=== PATIENT | male | born 1945 | race African-American/Black ===

== ENCOUNTER 2020-03-11 00:07 | Observation (INO) | payer MEDICARE, SELFPAY ==
[2020-03-11] VITALS (17 sets, daily range): BP systolic 124–184; BP diastolic 55–114; PULSE 66–115; RESP 16–24; TEMP 36.1–37; O2SAT 84–100; BMI 28.3
--- NOTE | 2020-03-11 | ECHO_ITS ---
Patient Info Name: Shawn Salmeron Age: 74 years : 1945 Gender: Male Ht: 75 in Wt: 275 lbs BSA: 2.61 m2 HR: 72 bpm BP: 174 / 108 mmHg Technical Quality: Good Exam Date: 03/11/2020 9:06 AM Exam Location: [facility] Pulmonary Exam Room: 349 Patient Status: Inpatient Admit Date: 03/11/2020 Staff Ordering Physician: Bo Mancini MD [place] Stocker: Beata Wilhelm RDCS Attending Provider: Birgit Eli PA-C Referring Physician: Live MIRANDA; Exam Type: CA echo doppler w bubble study Study Info Indications - acute encephalopathy Complete two-dimensional, color flow and Doppler transthoracic echocardiogram is performed with agitated saline. Contrast/Agitated Saline Contrast/Ag. Saline: Agitated Saline Amount: 20.00 ml Administered By: Dago Baird RN Existing IV Access: Yes IV Access Condition: patent with no signs of infiltration Summary 1. Left ventricular systolic function is normal, estimated at 55-60%. 2. The left ventricular diastolic function is grade I diastolic dysfunction. 3. There is mild tricuspid valve regurgitation. 4. No pulmonary hypertension, estimated pulmonary arterial systolic pressure is 28 mmHg. Left Ventricle Left ventricular chamber dimension is normal. Left ventricular systolic function is normal, estimated at 55-60%. There is no increased left ventricular wall thickness. Left ventricular septal wall motion is normal. The left ventricular diastolic function is grade I diastolic dysfunction. Right Ventricle Right ventricular chamber dimension is normal. Right ventricular systolic function is normal. Left Atria Left atrial chamber dimension is normal. Right Atria Right atrial chamber dimension is normal. Atrial Septum Intact interatrial septum visualized by agitated saline imaging. Aortic Valve The aortic valve is trileaflet. There is no aortic valve sclerosis. There is no aortic valve stenosis. There is no aortic valve regurgitation. Pulmonic Valve The pulmonic valve is normal. There is no pulmonic valve stenosis. There is no pulmonic regurgitation. Mitral Valve The mitral valve has normal leaflets. There is no mitral valve stenosis. There is no mitral valve regurgitation. Tricuspid Valve The tricuspid valve leaflets are normal. There is no significant tricuspid valve stenosis. There is mild tricuspid valve regurgitation. No pulmonary hypertension, estimated pulmonary arterial systolic pressure is 28 mmHg. Pericardium/Pleural The pericardium appears normal. There is no pericardial effusion. Inferior Vena Cava Normal inferior vena cava with >50% collapse upon inspiration consistent with normal right atrial pressure, 5 mmHg. Aorta The aortic root size at the sinus of Valsalva is normal. The prox ascending aorta size is normal. Left Ventricular Outflow Tract Name Value Normal LVOT 2D LVOT Diameter 2.1 cm LVOT Doppler LVOT Peak Gradient 4 mmHg LVOT Mean Gradient 3 mmHg LVOT VTI
--- NOTE | ~2020-03-11 | US_ITS ---
EXAMINATION: US carotid duplex BI DATE: 03/11/2020 13:47 INDICATION: Acute encephalopathy TECHNIQUE: Grayscale, color Doppler, and pulsed Doppler images of the cervical carotid arteries were obtained. The degree of vessel stenosis is placed in one of the following categories: normal, <50%, 5 0-69%, >=70% but less than near-occlusion, near-occlusion, or total occlusion. Note that percent sten osis relative to normal distal artery lumen diameter is indirectly measured from velocity measurement s as described by Jacoby, et al. Radiology 2003; 229:340-346. Notes: Normal: Peak systolic velocity <125 centimeters/sec and no plaque <50%. Peak systolic velocity <125 ( EDV <40; ICA/CCA PSV ratio <2.0; used these factors only a tandem lesions or low cardiac output or co ntralateral disease) 50-69 %: PSV 125-230 (EDV 40-100; ratio 2-4) >= 70% but less than near occlusion: PSV greater than 230 (EDV > 100; ratio> 4.0) Near Occlusion: PSV that is variable; markedly narrowed lumen Occlusion: Absent flow on color/spectral Doppler and no lumen on levy scale. COMPARISON: No prior studies for comparison. . FINDINGS: RIGHT: The right common carotid artery (CCA) peak systolic velocity (PSV) is 74 cm/s. The right internal car otid artery (ICA) PSV is 50 cm/s. The right ICA end-diastolic velocity (EDV) is 16 cm/s. The right IC A/CCA PSV ratio is 0.7. The external carotid artery (ECA) PSV is 51 cm/s. There is antegrade flow in the right vertebral artery. LEFT: The left CCA PSV is 64 cm/s. The left ICA PSV is 42 cm/s. The left ICA EDV is 14 cm/s. The left ICA/C CA PSV ratio is 0.7. The ECA PSV is 41 cm/s. There is antegrade flow in the left vertebral artery. IMPRESSION: 1. Less than 50% stenosis in the right internal carotid artery by sonographic criteria. 2. Less than 50% stenosis in the left internal carotid artery by sonographic criteria. Reviewed, dictated and finalized at location A. ERCIAL FRONT LOAD OPERATOR IMPRESSION: 1. Less than 50% stenosis in the right internal carotid artery by sonographic c phong. 2. Less than 50% stenosis in the left internal carotid artery by sonographic yue heller.
--- NOTE | ~2020-03-11 | CT_ITS ---
EXAMINATION: CTA brain DATE: 03/11/2020 07:25 CHOIR MEMBER INDICATION: Facial droop. Altered level consciousness. TECHNIQUE: Computed tomographic angiography (CTA) of the head was performed without and with 100 mL O mnipaque-350 intravenous contrast. The dose-length product was 683.00 mGy-cm. Volume-rendered and max imum intensity projection 3D reconstructions of the intracranial arteries were created by the technmario hogue on a separate workstation. Automated exposure control and iterative reconstruction technique we re employed. COMPARISON: CT dated 03/11/2020. FINDINGS: There is diminutive left vertebral artery which probably terminates in the posterior inferi or cerebellar artery dominant right vertebral artery. There is intracranial atherosclerosis. The post erior, middle and anterior cerebral arteries are symmetric without central occlusion or aneurysm. IMPRESSION: 1. No evidence for central intracranial occlusion, significant stenosis or aneurysm. Reviewed, dictated and finalized at location A. R MEMBER IMPRESSION: 1. No evidence for central intracranial occlusion, significant stenosis or aneu rysm.
--- NOTE | ~2020-03-11 | CT_ITS ---
EXAMINATION: CT brain wo con DATE: 03/11/2020 00:19 INDICATION: Facial droop. Altered level of consciousness. TECHNIQUE: Computed tomography (CT) of the head was performed without intravenous contrast. The dose- length product was 605.33 mGy-cm. Automated exposure control and iterative reconstruction technique w ere employed. COMPARISON: None FINDINGS: Generalized atrophy. No ventriculomegaly or midline shift. Basilar cisterns are patent. The re are scattered moderate periventricular and subcortical white matter changes, most likely related t o small vessel ischemic disease (microangiopathy). Study limited by motion artifact. No acute intracr anial hemorrhage, infarction or mass. Chronic right lacunar infarction. Paranasal sinuses and mastoid s are pneumatized. IMPRESSION: 1. No acute intracranial abnormality. 2: Chronic age-related findings. Reviewed, dictated and finalized at location A. SPRING ASSEMBLER
--- NOTE | ~2020-03-11 | XR_ITS ---
XR chest 1V portable 03/11/2020 01:33 Indication: Transient alteration of awareness. Procedure: AP portable chest Comparison: No prior studies for comparison. Findings: Bilateral perihilar interstitial infiltrates. Peribronchial thickening. Heart size normal. No significant effusion or pneumothorax. Impression: 1: Bilateral perihilar interstitial infiltrates may represent interstitial edema or atypical pneumoni a. Reviewed, dictated and finalized at location A. ING MACHINE OPERATOR SINGLE NEEDLE Impression: 1: Bilateral perihilar interstitial infiltrates may represent interstitial paul a or atypical pneumonia.
[2020-03-11] MEDS: LORazepam INJ (*CRX) 2 MG/ML VIAL IV PUSH (00:20)
--- NOTE | 2020-03-11 00:27 | ED.AMS ---
HPI - Altered Mental Status General Chief Complaint: Suspected CVA Stated Complaint: altered loc Time Seen by Provider: 03/11/20 00:16 Source: EMS Mode of arrival: EMS Limitations: altered mental status History of Present Illness HPI narrative: Patient is a 74-year-old male brought in by EMS due to decreased responsiveness at home. According to the she was in the bathroom and when she came back patient was flailing his arms around and yelling . Patient does have a history of cognitive impairment, seen his doctor yesterday, and one of his diagnosis on his visit summary was cognitive impairment. MD complaint: altered mental status and decreased responsiveness Review of Systems Review of Systems: ROS unobtainable: Yes unobtainable due to mental status Exam Const: General: no acute distress (Moderate distress) Limitations: physical limitations and other limitations (Altered mental status, nonverbal) HENMT: Head: normal to inspection, normocephalic and atraumatic Ears: hearing grossly normal bilaterally, TM normal on the right and TM normal on the left General nose exam: Normal external nose present, Normal nares present and No nasal discharge present Face and sinus: normal facial exam Mouth: Yes Normal oral and palatal mucosa present and Yes lip normal Eyes: General: appearance normal, both eyes and all related structures Pupils: Equal, round and reactive pupils present EOM: EOMs intact bilaterally Neck: Neck: normal visual inspection, full ROM, no lymphadenopathy and no meningeal signs Chest: Chest palpation & inspection: normal inspection of the chest Resp: Effort & Inspection: normal respiratory effort, able to speak in complete sentences, no respiratory distress and not tachypneic Auscultation: clear to auscultation bilaterally, no crackles, no rales, no rhonchi and no wheezes Cardio: Rate: regular rate Rhythm: regular rhythm GI: Inspection: normal to inspection GI Palp: No abdominal tenderness, Yes Soft to palpation, No Guarding due to palpation present (GI) and No Rigid due to palpation Auscultation: normal bowel sounds : General: Yes no CVA tenderness Back/Spine/Pelvis: Back: no CVA tenderness Skin: General skin exam: normal color, no rashes or lesions noted, elasticity normal and turgor normal Neuro: General: moves all extremities and No confusion Other: Patient moving all 4 extremities trying to get out of the CT table, requiring 3 nurses to restrain the patient, both upper extremities and lower extremities 5 out of 5 strength Patient is nonverbal Patient is unable to follow any commands Extrem: General: normal to inspection, full ROM and capillary refill normal Psych: Appearance: grossly normal and well kempt Course Course Emergency Course: Patient not talking but nonsensical. at bedside. states that patient is usually alert and oriented but not usually to time. 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 Patient condition unchanged. Patient will be admitted Vital Signs Vital signs: Vital Signs Temperature 37.0 C 03/11/20 00:30 Pulse Rate 115 H 03/11/20 00:30 Respiratory Rate 24 H 03/11/20 00:30 Blood Pressure 184/107 H 03/11/20 00:30 Pulse Oximetry 94 03/11/20 00:30 Temperature 37.0 C 03/11/20 00:30 Pulse Rate 115 H 03/11/20 00:50 Respiratory Rate 18 03/11/20 00:50 Blood Pressure 175/114 H 03/11/20 00:50 Pulse Oximetry 95 03/11/20 01:02 MDM - Altered Mental Status MDM Narrative Medical decision making narrative: I have reviewed his labs, ct head and cta of head, no acute intracranial process, no significant occlusion, so ruled out ICH and highly unlikely a CVA. Labs shows an elevated crea but otherwise within normal limits thus ruling out any significant electrolyte abnormality as a cause of his altered mental status. His EKG no ST elevation or Q waves and cardiac enzyme normal ruling out any acute coronary event. Based on 's descript
[2020-03-11 00:37] LABS: Basophils Percent Auto 0.3 % (0.2-1.2); Eosinophils Absolute Auto 0.2 K/mm3 (0-0.3); Eosinophils Percent Auto 1.4 % (0-4.4); Hematocrit 44.7 % (42.0-52.0); Hemoglobin 15.3 g/dL (14.0-18.0); Immature Granulocyte Absolute 0.02 K/mm3 (0.00-0.031); Immature Granulocyte Percent A 0.2 % (0-0.5); Lymphocytes Absolute Auto 5.43 K/mm3 (0.9-3.2); Lymphocytes Percent Auto 42.7 % (18.3-44.2); Mean Corpuscular HGB Conc 34.2 g/dl (32-36); Mean Corpuscular Hemoglobin 31.3 pg (26-34); Mean Corpuscular Volume 91.4 fl (80-100); Mean Platelet Volume 9.9 fl (7.4-10.4); Monocytes Absolute Auto 1.2 K/mm3 (0.1-0.6); Monocytes Percent Auto 9.2 % (2.6-8.5); Neutrophils Absolute Auto 5.9 K/mm3 (1.3-6.7); Neutrophils Percent Auto 46.2 % (45.5-73.1); Platelet Count Result 270 k/mm3 (150-375); Red Blood Count 4.89 M/mm3 (4.6-6.20); Red Cell Distribution Width 12.9 % (11.5-14.5); White Blood Count 12.7 K/mm3 (4.5-10.0)
[2020-03-11 00:51] LABS: Anion Gap 16 mmol/L (8-16); Blood Urea Nitrogen 30 mg/dL (9-20); Calcium 9.3 mg/dL (8.4-10.2); Carbon Dioxide 20 mmol/L (22-30); Chloride 102 mmol/L (98-107); Estimated CRCL calculation 45 ml/min; Estimated Glomerular Filt Rate 45; Glucose 192 mg/dL (75-110); Sodium 138 mmol/L (137-145)
--- NOTE | 2020-03-11 00:56 | ECG_ITS ---
Measurements Intervals [place] Rate: 115 P: 35 TX: 156 QRS: -28 QRSD: 86 T: 66 QT: 304 QTc: 421 Interpretive Statements SINUS TACHYCARDIA INCOMPLETE RIGHT BUNDLE BRANCH BLOCK BORDERLINE ST-T WAVE ABNORMALITY- HIGH LATERAL LEADS BASELINE WANDER- I, III, AVR, AVL, AVF, V4-V6 ABNORMAL ECG Electronically Signed On 03-11-2020 7:11:58 HYDROMETALLURGICAL ENGINEER by Gustabo Carson D.O.
--- NOTE | 2020-03-11 01:00 | PC.NURSE ---
Pt extremely restless and unable to lie still for CT scan. 2mg ativan given per order.
[2020-03-11 01:03] LABS: Troponin I 0.025 ng/mL (0.000-0.034)
[2020-03-11 01:07] LABS: INR 1.1; Partial Thromboplastin Time 28.3 SECONDS (22.3-36.8); Prothrombin Time 14.3 Seconds (11.1-14.7)
[2020-03-11 01:08] LABS: Alveolar/Arterial O2 Gradient 166.9 mmHg; Base Excess ABG -0.9 mEq/l (+/-2.0); Carboxyhemoglobin 1.3 % THb (0-2.0); Fractional Inspired Oxygen 40 %; HCO3 ABG 23.7 mEq/l (22.0-26.0); Methemoglobin ABG 0.2 %THb (0-1.5); Oxygen Content ABG 19.9 %vol (16.0-22.0); Oxygen Saturation ABG 94.7 % (95.0-100.0); Oxyhemoglobin 93.1 % THb (90.0-100.0); PCO2 ABG 39.4 mmHg (35.0-45.0); PO2 FiO2 Ratio Arterial Blood 1.83 %; Reduced Hemoglobin 5.4 %THb (0-5.0); Total Hemoglobin 15.2 g/dL (12.0-18.0); pH ABG 7.398 (7.350-7.450)
[2020-03-11 01:09] LABS: Device NASAL CANNULA; Modified Allen's Test Pass; Site Drawn LEFT RADIAL
[2020-03-11 01:16] LABS: Atypical Lymphocytes Present; Platelet Estimate Adequate (Adequate)
[2020-03-11 01:18] LABS: Add Urine Microscopic? YES; Appearance Urine Clear (Clear); Bilirubin Urine Negative (Negative); Blood Urine Negative (Negative); Color Urine Yellow (Yellow); Glucose Urine UA 2+ mg/dL (Negative); Ketones Urine Negative (Negative); Leukocyte Esterase Ur Negative LEU/UL (Negative); Mucus Urine Rare /lpf; Nitrate Urine Negative (Negative); Protein Urine 1+ mg/dL (Negative); RBC Urine 0-2 /hpf (0-2); Urobilinogen Urine Negative mg/dL (<2.0); WBC Urine 0-3 /hpf
[2020-03-11 01:25] LABS: Amphetamine Screen Urine Negative (Negative); Barbiturate Screen Urine Negative (Negative); Benzodiazepines Screen Urine Negative (Negative); Cannabinoid Screen Urine Negative (Negative); Cocaine Screen Urine Negative (Negative); Methadone Screen Urine Negative (Negative); Opiate Screen Urine Negative (Negative); Phencyclidine Screen Urine Negative (Negative)
--- NOTE | 2020-03-11 01:46 | PC.NURSE ---
Pt becoming less restless and more alert. Was able to tell this RN that his name was Shawn and ask why he was in the hospital. When asked what is birthday was he stated [birth year], [birth year], [birth year], [birth year], [birth year][age][birth year], 48 . Pt repeated those numbers with every subsequent question. notified.
--- NOTE | 2020-03-11 02:17 | PC.NURSE ---
Pt attempting to climb out of bed. Stated he just wanted to get up to the bathroom. Pt assisted with urinal.
--- NOTE | 2020-03-11 02:43 | PM.IMHP ---
H&P: HPI History of Present Illness Date/Time: 03/11/20 02:43 Chief Complaint: Acute altered mental status. Narrative: this is a 74-year-old diabetic male who presented to the hospital [facility] with a complaint of altered mental status. The patient's who is at bedside explains that the patient was asleep for about 1 hour and she was in the bathroom getting ready for bed when suddenly she heard a noise coming from the bedroom. She went into the bedroom and found the patient making strange noises, flailing his arms around, and appear to be having seizure-like activity according to her. She noticed that he was having labored breathing and she could not get him to respond to her. She does not believe that he bit his tongue or lost urine at that time. The patient has no previous history of seizures or previous stroke. On arrival to the emergency room the patient continued to have similar behavior and had to be administered 2 mg of Ativan while undergoing CTA of head. CTA of head did not demonstrate any acute intracranial process. Routine labs were obtained which demonstrated mild acute renal failure which may be chronic. ER provider has consulted Neurology, Dr. Guajardo who has asked that we admit the patient to the hospital as he may have had a seizure and continue close observation. On my encounter with the patient [facility] he is medicated with Ativan who, very somnolent, awakens to physical stimuli, but cannot answer my questions appropriately. No further history is obtainable from the patient. Review of Systems Review of Systems: ROS unobtainable: Yes unobtainable due to mental status PMFSH Past Medical History Medical History Diabetes mellitus Hyperlipidemia Family History Family History Mother Diabetes mellitus Sibling Diabetes mellitus Other Cerebrovascular accident Social History Social History Smoking status: Never smoker Alcohol intake: current Drinks per week: 1 Substance use: never Living arrangements: with family Occupation/Education: retired Gender identity (if verbalized by the patient): Male Spiritual care concerns: No Comments Past surgical history is negative. Meds Home Medications and Allergies Home Medications Medication Instructions Recorded Confirmed Type atorvastatin 20 mg PO HS 03/11/20 03/11/20 History insulin glargine [Lantus Solostar 16 unit SUBCUT QPM 03/11/20 03/11/20 History U-100 Insulin] liraglutide [Victoza 3-Tera] 18 mg SUBCUT DAILY 03/11/20 03/11/20 History pen needle, diabetic [Sure Comfort 03/11/20 03/11/20 History Pen Needle] Allergies Allergy/AdvReac Type Severity Reaction Status Date / Time No Known Allergies Allergy Verified 03/11/20 03:45 Vital Signs Vital Signs - 24 hr 03/11/20 00:30 03/11/20 00:50 03/11/20 01:02 Temperature 37.0 C Pulse Rate 115 H 115 H Respiratory Rate 24 H 18 Blood Pressure 184/107 H 175/114 H Pulse Oximetry 94 84 L 95 03/11/20 01:50 Temperature Pulse Rate Respiratory Rate Blood Pressure Pulse Oximetry 97 Exam Const: General: other (somnolent but arousable) Nutritional Appearance: obese Orientation/consciousness: Other orientation findings (medicated and somnolent) HENMT: Head: normal to inspection General nose exam: Normal external nose present Face and sinus: normal facial exam Mouth: Yes Normal oral and palatal mucosa present and Yes oropharynx normal Eyes: Pupils: Equal, round and reactive pupils present Neck: Neck: supple and no JVD Thyroid: thyroid normal Lymphatic: lymphadenopathy not noted Resp: Effort & Inspection: normal respiratory effort Auscultation: clear to auscultation bilaterally Cardio: Rate: regular rate Rhythm: regular rhythm Heart sounds: no murmurs GI: Inspection: normal to inspect
[2020-03-11] MEDS: ASPIRIN 300 MG SUPPOSITORY RECTAL (02:51)
--- NOTE | 2020-03-11 03:15 | ADMGEN ---
This patient, Shawn Salmeron, was admitted to Medical Room 349-01. Patient/family oriented to hospital policies and general routines including ID bracelet, bed and alarms, visiting hours, pain management, procedures, bathroom and other care routines, personal items, smoking policy, room service/diet, and visiting hours. Information on how to activate the Rapid Response Team has been discussed. Patient/Family are encouraged to report perceived risks to care and to ask questions if they do not understand what they are told or what they should do.
[2020-03-11] MEDS: LACTATED RINGERS 1,000 ML 100 ML IV CONT ×3 (03:27→23:25)
[2020-03-11 03:37] LABS: Ammonia < 9 umol/L (9-30)
[2020-03-11 03:51] LABS: Base Excess ABG 0.2 mEq/l (+/-2.0); Fractional Inspired Oxygen 32 %; HCO3 ABG 25.6 mEq/l (22.0-26.0); Oxygen Content ABG 20.4 %vol (16.0-22.0); Oxygen Saturation ABG 96.4 % (95.0-100.0); Oxyhemoglobin 95.4 % THb (90.0-100.0); PCO2 ABG 44.1 mmHg (35.0-45.0); PO2 ABG 86.6 mmHg (80.0-100.0); PO2 FiO2 Ratio Arterial Blood 2.71 %; Total Hemoglobin 15.2 g/dL (12.0-18.0); pH ABG 7.381 (7.350-7.450)
[2020-03-11 03:52] LABS: Device NASAL CANNULA; Modified Allen's Test Pass; Site Drawn LEFT RADIAL
[2020-03-11 04:41] LABS: Folic Acid > 20.0 ng/mL (2.76->20)
[2020-03-11 05:56] LABS: Total Triiodothyronine (T3) 1.31 NG/ML (0.97-1.69)
[2020-03-11 06:06] LABS: Basophils Percent Auto 0.2 % (0.2-1.2); Eosinophils Percent Auto 0.3 % (0-4.4); Hematocrit 41.2 % (42.0-52.0); Hemoglobin 14.4 g/dL (14.0-18.0); Immature Granulocyte Absolute 0.03 K/mm3 (0.00-0.031); Immature Granulocyte Percent A 0.3 % (0-0.5); Lymphocytes Absolute Auto 2.54 K/mm3 (0.9-3.2); Lymphocytes Percent Auto 27.3 % (18.3-44.2); Mean Corpuscular Hemoglobin 31.9 pg (26-34); Mean Corpuscular Volume 91.2 fl (80-100); Mean Platelet Volume 9.8 fl (7.4-10.4); Monocytes Absolute Auto 0.6 K/mm3 (0.1-0.6); Monocytes Percent Auto 6.9 % (2.6-8.5); Neutrophils Absolute Auto 6.1 K/mm3 (1.3-6.7); Platelet Count Result 228 k/mm3 (150-375); Red Blood Count 4.52 M/mm3 (4.6-6.20); Red Cell Distribution Width 12.8 % (11.5-14.5); White Blood Count 9.3 K/mm3 (4.5-10.0)
[2020-03-11 06:26] LABS: Anion Gap 6 mmol/L (8-16); Blood Urea Nitrogen 28 mg/dL (9-20); Calcium 8.9 mg/dL (8.4-10.2); Carbon Dioxide 27 mmol/L (22-30); Chloride 104 mmol/L (98-107); Estimated CRCL calculation 40 ml/min; Estimated Glomerular Filt Rate 48; Glucose 199 mg/dL (75-110); Magnesium 1.9 mg/dL (1.6-2.3); Potassium 4.1 mmol/L (3.4-5.0); Sodium 137 mmol/L (137-145)
[2020-03-11 06:34] LABS: Troponin I 0.056 ng/mL (0.000-0.034)
[2020-03-11 06:51] LABS: Glucose Point of Care 183 (65-105)
[2020-03-11 10:17] LABS: Troponin I 0.063 ng/mL (0.000-0.034)
--- NOTE | 2020-03-11 10:33 | ECG_ITS ---
Measurements Intervals [place] Rate: 68 P: 29 DC: 153 QRS: -19 QRSD: 98 T: 86 QT: 388 QTc: 414 Interpretive Statements SINUS RHYTHM VENTRICULAR PREMATURE COMPLEX NONSPECIFIC T-WAVE ABNORMALITY- INF/HIGH LAT LEADS BASELINE ARTIFACT- I, II, III, V4-V6 BORDERLINE ECG Electronically Signed On 03-11-2020 11:14:53 REVENUE ENFORCEMENT COLLECTION AGENT by Gustabo Carson D.O.
[2020-03-11 11:39] LABS: Creatine Kinase 426 U/L (55-170)
[2020-03-11 11:57] LABS: Glucose Point of Care 138 (65-105)
--- NOTE | 2020-03-11 13:51 | PM.IMPN ---
Progress Note: A&P Assessment and Plan (1) Seizure: Code(s): R56.9 - Unspecified convulsions Status: Acute Assessment and Plan: presented with concerns for seizure as patient's found him down on the ground having convulsions. He did not bite his tongue or lose urine. No obvious injuries noted. It. He again had a similar episode in the emergency department requiring 2 mg Ativan. He reports he cannot recall the event And is now confused, which may be postictal state. he has not been hypoglycemic since arrival, however did note poor appetite so he could have been hypoglycemic at the time. He has no history of seizure activity. He does not drink alcohol. Neurology consultation appreciated. Seizure precautions in place Ativan IV p.r.n. for seizure activity (2) Acute encephalopathy: Code(s): G93.40 - Encephalopathy, unspecified Status: Acute Assessment and Plan: patient A&O x4, however is exhibiting confusion in conversation. May be postictal state. Head CT negative for acute findings. CT brain showed no central occlusion, stenosis, or aneurysm. UA not suggestive of infection. Electrolytes are stable. ammonia , B12, and folate within normal limits. urine drug screen negative. May be related to dehydration. Appreciate neurology consultation as above monitor mental status closely echocardiogram and carotid Dopplers pending (3) Acute renal failure: Qualifiers: Acute renal failure type: unspecified Qualified Code(s): N17.9 - Acute kidney failure, unspecified Code(s): N17.9 - Acute kidney failure, unspecified Status: Acute Assessment and Plan: no prior labs available to establish baseline. Creatinine 1.8 upon presentation. Suspect prerenal secondary to dehydration. Continue gentle IV fluids monitor renal function closely and avoid nephrotoxic agents. (4) Elevated troponin: Code(s): R77.8 - Other specified abnormalities of plasma proteins Status: Acute Assessment and Plan: Troponin within normal limits upon presentation but was elevated upon repeat. Troponin has been trended today with peak of 0.063 followed by downward trend. I suspect this is secondary to acute seizure. Total CK was mildly elevated as well, supporting seizure as cause for elevated troponin. He has no complaints of chest pain and ACS is not suspected. (5) Leukocytosis: Qualifiers: Leukocytosis type: unspecified Qualified Code(s): D72.829 - Elevated white blood cell count, unspecified Code(s): D72.829 - Elevated white blood cell count, unspecified Status: Acute Assessment and Plan: Resolved. Mildly elevated on presentation and is now normal. Suspect this was reactive secondary to seizure. (6) Diabetes mellitus: Qualifiers: Diabetes mellitus type: type 2 Diabetes mellitus intermediate project manager insulin use: with intermediate project manager use Diabetes mellitus complication status: without complication Qualified Code(s): E11.9 - Type 2 diabetes mellitus without complications; Z79.4 - long term care administrator (current) use of insulin Code(s): E11.9 - Type 2 diabetes mellitus without complications Status: Chronic Assessment and Plan: blood sugars reviewed today and are well controlled. Continue Accuchecks, SSI Coverage, hypoglycemic protocol. Check A1c Subjective Date/time seen: 03/11/20 13:51 Interval history: Date of service: 03/11/2020 Shawn Salmeron is a 74-year-old male with history of diabetes mellitus and hyperlipidemia who is seen in follow-up for suspected seizure. Today he is feeling very sleepy. He answers all my questions but closes his eyes promptly and is not able to elaborate on any of his symptoms. He is A&O x4 but he does appear confused in conversation. he is not able to tell me why he is in the hospital and states that he does not really remember anything leading up
[2020-03-11 13:54] LABS: Troponin I 0.057 ng/mL (0.000-0.034)
--- NOTE | 2020-03-11 14:36 | WPDNEURCNPN ---
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 terminal plant operator (current) use of insulin Code(s): E11.9 - Type 2 diabetes mellitus without complications Status: Chronic (5) Hyperlipidemia: Qualifiers: Hyperlipidemia type: unspecified Qualified Code(s): E78.5 - Hyperlipidemia, unspecified Code(s): E78.5 - Hyperlipidemia, unspecified Status: Chronic (6) Leukocytosis: Qualifiers: Leukocytosis type: unspecified Qualified Code(s): D72.829 - Elevated white blood cell count, unspecified Code(s): D72.829 - Elevated white blood cell count, unspecified Status: Acute (7) Acute renal failure: Qualifiers: Acute renal failure type: unspecified Qualified Code(s): N17.9 - Acute kidney failure, unspecified Code(s): N17.9 - Acute kidney failure, unspecified Status: Acute (8) Acute encephalopathy: Code(s): G93.40 - Encephalopathy, unspecified Status: Acute (9) Altered mental status, unspecified: Qualifiers: Altered mental status type: unspecified Qualified Code(s): R41.82 - Altered mental status, unspecified Code(s): R41.82 - Altered mental status, unspecified Status: Acute Additional Plan most likely hypoglycemia with negative CTA EEG can be obtained to rule out the possibility of seizure Consult date: 03/11/20 Time Seen: 14:00 HPI: Shawn Salmeron is a 74 year old male admitted to the hospital through the emergency room for the complaints of change in the mental status as per the information available patient's was at the bedside, and went to sleep for [id number] and at the time incident happened she was in the bathroom getting ready for bed when suddenly she heard a noise coming on the bedroom when she went there she found him making strange noises flailing his arms around appear to be having seizure-like activity with labored breathing and she could not get him to respond he did not bite his tongue and has no history of seizures in the past in the emergency room initially continued to have similar behavior and had to be given 2 mg of Ativan while undergoing CT of the head which did not demonstrate any acute intracranial process he was noted to have mild acute renal failure on the lab and was admitted to the hospital for further evaluation. His never a smoker, 1 drink per week and is insulin-dependent diabetic Review of Systems Review of Systems: All systems reviewed & are unremarkable except as noted in HPI and below PMFSH Past Medical History Medical History Diabetes mellitus Hyperlipidemia Family History Family History Mother Diabetes mellitus Sibling Diabetes mellitus Other Cerebrovascular accident Social History Social History Smoking status: Never smoker Alcohol intake: current Drinks per week: 1 Substance use: never Living arrangements: with family Occupation/Education: retired Gender identity (if verbalized by the patient): Male Spiritual care concerns: No Meds Home Medications and Allergies Home Medications Medication Instructions Recorded Confirmed Type atorvastatin 40 mg PO HS 03/11/20 03/11/20 History fluticasone propionate [Flonase] 2 spray INTRANASAL DAILY 03/11/20 03/11/20 H
[2020-03-11 17:20] LABS: Glucose Point of Care 113 (65-105)
[2020-03-11] MEDS: INSULIN GLARGINE (*BKC) 100 UNITS/ML 20 UNITS SUB-Q (20:07)
[2020-03-11 20:12] LABS: Glucose Point of Care 192 (65-105)
[2020-03-12] VITALS (7 sets, daily range): BP systolic 124–137; BP diastolic 69–81; PULSE 63–81; RESP 14–16; TEMP 36.7–36.9; O2SAT 94–97
[2020-03-12 06:22] LABS: Basophils Percent Auto 0.4 % (0.2-1.2); Eosinophils Absolute Auto 0.3 K/mm3 (0-0.3); Eosinophils Percent Auto 3.3 % (0-4.4); Hematocrit 39.9 % (42.0-52.0); Hemoglobin 13.8 g/dL (14.0-18.0); Immature Granulocyte Absolute 0.02 K/mm3 (0.00-0.031); Immature Granulocyte Percent A 0.2 % (0-0.5); Lymphocytes Absolute Auto 3.35 K/mm3 (0.9-3.2); Lymphocytes Percent Auto 40.1 % (18.3-44.2); Mean Corpuscular HGB Conc 34.6 g/dl (32-36); Mean Corpuscular Hemoglobin 31.9 pg (26-34); Mean Corpuscular Volume 92.4 fl (80-100); Monocytes Absolute Auto 0.7 K/mm3 (0.1-0.6); Monocytes Percent Auto 8.1 % (2.6-8.5); Neutrophils Percent Auto 47.9 % (45.5-73.1); Platelet Count Result 211 k/mm3 (150-375); Red Blood Count 4.32 M/mm3 (4.6-6.20); White Blood Count 8.4 K/mm3 (4.5-10.0)
[2020-03-12 06:33] LABS: Alanine Aminotransferase 26 U/L (4-50); Albumin Level 3.3 g/dL (3.5-5.1); Alkaline Phosphatase 77 U/L (38-126); Anion Gap 5 mmol/L (8-16); Aspartate Amino Transferase 36 U/L (17-59); Bilirubin,Total 0.8 mg/dL (0.2-1.3); Blood Urea Nitrogen 19 mg/dL (9-20); Calcium 8.4 mg/dL (8.4-10.2); Carbon Dioxide 30 mmol/L (22-30); Chloride 103 mmol/L (98-107); Estimated CRCL calculation 42 ml/min; Estimated Glomerular Filt Rate 51; Glucose 97 mg/dL (75-110); Magnesium 1.7 mg/dL (1.6-2.3); Potassium 3.8 mmol/L (3.4-5.0); Sodium 138 mmol/L (137-145)
[2020-03-12 07:00] LABS: Glucose Point of Care 85 (65-105)
--- NOTE | 2020-03-12 16:40 | PM.DS ---
DS: Admitting Diagnosis Admitting Diagnosis Admitting Diagnosis: Seizure DS: Discharge Diagnosis Discharge Diagnosis (1) Seizure: Code(s): R56.9 - Unspecified convulsions Status: Acute Assessment and Plan: Presented with concerns for seizure as patient's found him down on the ground having convulsions. He did not bite his tongue or lose urine. No obvious injuries noted. He again had a similar episode in the emergency department requiring 2 mg Ativan. He reports he cannot recall the event and was confused on my initial encounter the following day. He has no history of seizures. He does not drink alcohol. There were concerns for hypoglycemic etiology of seizure. His noted that his blood sugar was 200 at time of EMS arrival. He does not believe he could have taken too much insulin. He was seen in consultation by neurology. No antiepileptic medications were recommended. Recommend outpatient follow up and outpatient EEG. Driving restrictions for 6 weeks or until further neurology follow up. He will need to monitor his blood sugars closely at home and record for PCP. (2) Acute encephalopathy: Code(s): G93.40 - Encephalopathy, unspecified Status: Acute Assessment and Plan: Noted to be confused on presentation. Upon my initial encounter, he was A&O x4, however was exhibiting confusion in conversation and was quite somnolent. Likely postictal state. Head CT negative for acute findings. CT brain showed no central occlusion, stenosis, or aneurysm. Carotid dopplers showed <50% stenosis of bilateral ICA. Echo with normal EF and no significant valve disease. UA not suggestive of infection. Electrolytes are stable. ammonia , B12, and folate within normal limits. urine drug screen negative. On my subsequent encounter, he returned to baseline and was able to answer all questions appropriately. (3) Acute renal failure: Qualifiers: Acute renal failure type: unspecified Qualified Code(s): N17.9 - Acute kidney failure, unspecified Code(s): N17.9 - Acute kidney failure, unspecified Status: Acute Assessment and Plan: No prior labs available to establish baseline. Creatinine 1.8 upon presentation with continued improvement following IV fluid hydration. 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 Encouraged adequate PO hydration. He will need to repeat outpatient BMP in 1 week. (4) Elevated troponin: Code(s): R77.8 - Other specified abnormalities of plasma proteins Status: Acute Assessment and Plan: Troponin within normal limits upon presentation but was elevated upon repeat. Troponin has been trended today with peak of 0.063 followed by downward trend. I suspect this is secondary to acute seizure. Total CK was mildly elevated as well, supporting seizure as cause for elevated troponin. He has no complaints of chest pain and ACS not suspected. (5) Leukocytosis: Qualifiers: Leukocytosis type: unspecified Qualified Code(s): D72.829 - Elevated white blood cell count, unspecified Code(s): D72.829 - Elevated white blood cell count, unspecified Status: Acute Assessment and Plan: Resolved. Mildly elevated on presentation and is now normal. Suspect this was reactive secondary to seizure. (6) Diabetes mellitus: Qualifiers: Diabetes mellitus complication status: without complication Diabetes mellitus half-way insulin use: with half-way use Diabetes mellitus type: type 2 Qualified Code(s): E11.9 - Type 2 diabetes mellitus without complications; Z79.4 - retirement (current) use of insulin Code(s): E11.9 - Type 2 diabetes mellitus without complications Status: Chronic Assessment and Plan: Blood sugars reviewed and were generally well controlled. No episodes of hypoglycemia. Monitored closely during stay wit
[2020-03-12 16:55] LABS: Glucose Point of Care 148 (65-105)
[2020-03-16 07:05] LABS: Glucose Point of Care 184 (65-105)
== END 2020-03-12 18:20 | disposition home or self-care (01) ==
LOC: ANHED 01:40 → ANH3MED 05:16
PROVIDERS: Emergency Medicine; Admitting Provider Family Medicine; Emergency Provider Emergency Medicine; PCP Internal Medicine Geriatric Medicine; Visit Provider Physician Assistant
DX: R56.9 Unspecified convulsions (principal); G93.40 Encephalopathy, unspecified; N17.9 Acute kidney failure, unspecified; R09.02 Hypoxemia; R77.8 Other specified abnormalities of plasma proteins; D72.829 Elevated white blood cell count, unspecified; E11.9 Type 2 diabetes mellitus without complications; R41.82 Altered mental status, unspecified; R94.31 Abnormal electrocardiogram [ECG] [EKG]; E78.5 Hyperlipidemia, unspecified; Z79.4 Long term (current) use of insulin; R91.8 Other nonspecific abnormal finding of lung field; I65.23 Occlusion and stenosis of bilateral carotid arteries
CPT/HCPCS: 36415; 36600; 70450; 70496; 70498; 71045; 80048; 80053; 80307; 81001; 82140; 82375; 82550; 82607; 82746; 82805; 82948; 83050; 83735; 84439; 84443; 84480; 84484; 85025; 85610; 85730; 93005; 93306; 93880; 96361; 96374; 96375; 97110; 97161; 97165; 97530; 99285; A9270; G0378; J1815; J2060; J7120; Q9967

== ENCOUNTER 2020-03-18 11:01 | Outpatient (NON) | payer MEDICARE, SELFPAY ==
[2020-03-18 11:40] LABS: Anion Gap 1 mmol/L (8-16); Blood Urea Nitrogen 23 mg/dL (9-20); Calcium 9.2 mg/dL (8.4-10.2); Carbon Dioxide 33 mmol/L (22-30); Chloride 104 mmol/L (98-107); Estimated Glomerular Filt Rate 45; Glucose 171 mg/dL (75-110); Potassium 4.3 mmol/L (3.4-5.0); Sodium 138 mmol/L (137-145)
== END 2020-03-18 11:02 ==
PROVIDERS: PCP Internal Medicine Geriatric Medicine; Visit Provider Internal Medicine Geriatric Medicine
DX: N17.9 Acute kidney failure, unspecified (principal)
CPT/HCPCS: 80048

== ENCOUNTER 2020-05-14 01:03 | Emergency (ER) | payer MEDICARE, SELFPAY ==
[2020-05-14] VITALS (13 sets, daily range): BP systolic 126–160; BP diastolic 75–107; PULSE 69–100; RESP 15–24; TEMP 36.6; O2SAT 95–98
--- NOTE | ~2020-05-14 | CT_ITS ---
EXAMINATION: CT brain wo con INDICATION: Altered mental status and weakness COMPARISON: 03/11/2020 TECHNIQUE: Standard unenhanced head CT. The dose-length product (DLP) was 681.00 mGy-cm. The mA was a djusted according to patient size. Iterative reconstruction technique was employed. FINDINGS: There is no acute intraparenchymal hemorrhage. No evidence of mass lesion. No evidence of a cute infarction. There are areas of prior infarction in the bilateral basal ganglia. There is mild pe riventricular and subcortical hypodensity probably related to small vessel ischemic disease. There is moderate prominence of the sulci and ventricles related to cerebral atrophy. Intracranial calcified cerebral atherosclerosis is noted. There are no extra-axial collections. There is no mass effect or m idline shift. The orbits and soft tissues are unremarkable. There is mild mucosal thickening of the paranasal sinuses. IMPRESSION: 1. Areas of prior infarction without acute intracranial abnormality. 2. Age related findings. Reviewed, dictated and finalized at location A. HANDISE DELIVERER
--- NOTE | ~2020-05-14 | XR_ITS ---
EXAMINATION: XR chest 1V INDICATION: Transient alteration of awareness TECHNIQUE: AP view of the chest is obtained. COMPARISON: 03/11/2020 FINDINGS: The lungs are free of acute opacities. There is no pleural effusion or pneumothorax. Cardio megaly is noted. IMPRESSION: 1. No acute cardiopulmonary abnormality. Reviewed, dictated and finalized at location A. CER MACHINE OPERATOR
--- NOTE | 2020-05-14 01:19 | ECG_ITS ---
Measurements Intervals [place] Rate: 79 P: 18 [place]: 175 QRS: 91 QRSD: 93 T: -47 QT: 388 QTc: 447 Interpretive Statements SINUS RHYTHM ATRIAL PREMATURE COMPLEX RIGHT AXIS DEVIATION INCOMPLETE RIGHT BUNDLE BRANCH BLOCK BORDERLINE ST-T WAVE ABNORMALITY- DIFFUSE LEADS BORDERLINE ECG Electronically Signed On 05-14-2020 8:16:03 STRATEGIC CONSULTANT by Gustabo Carson D.O.
[2020-05-14 01:35] LABS: Basophils Percent Auto 0.3 % (0.2-1.2); Eosinophils Absolute Auto 0.1 K/mm3 (0-0.3); Eosinophils Percent Auto 1.4 % (0-4.4); Hemoglobin 15.6 g/dL (14.0-18.0); Immature Granulocyte Absolute 0.02 K/mm3 (0.00-0.031); Immature Granulocyte Percent A 0.3 % (0-0.5); Lymphocytes Absolute Auto 2.63 K/mm3 (0.9-3.2); Mean Corpuscular HGB Conc 34.7 g/dl (32-36); Mean Corpuscular Volume 92.4 fl (80-100); Mean Platelet Volume 9.6 fl (7.4-10.4); Monocytes Absolute Auto 0.7 K/mm3 (0.1-0.6); Monocytes Percent Auto 8.8 % (2.6-8.5); Neutrophils Absolute Auto 4.3 K/mm3 (1.3-6.7); Neutrophils Percent Auto 55.2 % (45.5-73.1); Platelet Count Result 241 k/mm3 (150-375); Red Blood Count 4.87 M/mm3 (4.6-6.20); White Blood Count 7.7 K/mm3 (4.5-10.0)
[2020-05-14 01:44] LABS: Prothrombin Time 13.5 Seconds (11.1-14.7)
[2020-05-14 01:45] LABS: Partial Thromboplastin Time 28.6 SECONDS (22.3-36.8)
[2020-05-14 01:50] LABS: Alanine Aminotransferase 23 U/L (4-50); Albumin Level 3.9 g/dL (3.5-5.1); Alkaline Phosphatase 96 U/L (38-126); Anion Gap 5 mmol/L (8-16); Aspartate Amino Transferase 33 U/L (17-59); Bilirubin,Total 0.4 mg/dL (0.2-1.3); Blood Urea Nitrogen 31 mg/dL (9-20); Calcium 9.3 mg/dL (8.4-10.2); Carbon Dioxide 27 mmol/L (22-30); Chloride 106 mmol/L (98-107); Estimated CRCL calculation 39 ml/min; Estimated Glomerular Filt Rate 48; Glucose 202 mg/dL (75-110); Sodium 138 mmol/L (137-145)
[2020-05-14 01:51] LABS: Lactic Acid Reflex 1.4 mmol/L (0.7-2.1)
[2020-05-14 02:02] LABS: Troponin I 0.016 ng/mL (0.000-0.034)
[2020-05-14 02:09] LABS: Acetaminophen < 10 ug/mL (10-30); Ammonia < 9 umol/L (9-30); Ethanol < 10 mg/dL (<10); Salicylate < 1.0 mg/dL (2-20)
[2020-05-14 03:28] LABS: Add Urine Microscopic? YES; Appearance Urine Clear (Clear); Bilirubin Urine Negative (Negative); Blood Urine Negative (Negative); Color Urine Yellow (Yellow); Glucose Urine UA 2+ mg/dL (Negative); Ketones Urine Negative (Negative); Leukocyte Esterase Ur Negative LEU/UL (Negative); Mucus Urine Rare /lpf; Nitrate Urine Negative (Negative); Protein Urine Negative (Negative); RBC Urine 0-2 /hpf (0-2); Specific Grav Ur 1.019 (1.001-1.035); Squamous Epithelial Cell Urine Rare /hpf (Few); Urobilinogen Urine Negative mg/dL (<2.0); WBC Urine 0-3 /hpf
--- NOTE | 2020-05-14 03:39 | ED.GENADULT ---
HPI - General Adult General Chief complaint: Altered Mental Status Stated complaint: CONFUSED Time Seen by Provider: 05/14/20 01:10 History of Present Illness HPI narrative: Patient is a 74-year-old gentleman who presents to the emergency department with chief complaint of altered mental status. Per EMS and per the family the patient had an episode where he was very confused and had shaking present in his upper extremities the patient did not lose full consciousness but afterwards was very confused and not acting appropriately. The patient reports that he had an episode similar to this except at that time he fully lost consciousness had generalized shaking patient was admitted to the hospital and evaluated for possible seizure activity. Patient currently is not on any antiepileptic medications but has had a work-up as an outpatient by neurology. The patient and patient's family reports that currently he is back to his baseline Related Data Home Medications Medication Instructions Recorded Confirmed Lantus Solostar U-100 Insulin 50 unit SUBCUT QPM 03/11/20 03/11/20 Victoza 3-Tera 1.8 mg SUBCUT DAILY 03/11/20 03/11/20 atorvastatin 40 mg PO HS 03/11/20 03/11/20 fluticasone propionate 2 spray INTRANASAL DAILY 03/11/20 03/11/20 insulin aspart U-100 [Novolog See Rx Instructions .ROUTE .COMPLEX 03/11/20 03/11/20 U-100 Insulin aspart] ipratropium bromide 2 spray INTRANASAL BID 03/11/20 03/11/20 pen needle, diabetic [Sure Comfort 03/11/20 03/11/20 Pen Needle] Allergies Allergy/AdvReac Type Severity Reaction Status Date / Time No Known Allergies Allergy Verified 03/11/20 03:45 Review of Systems Review of Systems: Narrative: A 10 system review of systems was completed on the patient and is negative except for what is stated in the HPI. Nursing and ancillary documentation was reviewed. [facility] Past Medical History Medical History Diabetes mellitus Hyperlipidemia Family History Family History Mother Diabetes mellitus Sibling Diabetes mellitus Other Cerebrovascular accident Social History Social History Smoking status: Never smoker Alcohol intake: current Drinks per week: 1 Substance use: never Gender identity (if verbalized by the patient): Male Spiritual care concerns: No Exam Narrative: Exam Narrative: GENERAL: Well-appearing, well-nourished, and in no acute distress. HEAD: Normocephalic, atraumatic. EYES: PERRLA and EOMI. ENT: Nares clear, no rhinorrhea or epistaxis. Mucous membranes moist. NECK: Supple. CHEST: Clear to auscultation. No respiratory distress. HEART: Regular rate and rhythm. No murmur heard. Normal peripheral pulses. ABDOMEN: Soft, nontender, nondistended, normal active bowel sounds. EXTREMITIES: Normal range of motion. No edema. SKIN: Warm, dry, no rash. NEURO: No focal deficits. Alert and oriented x3. PSYCH: Normal mood and affect. Course Vital Signs Vital signs: Vital Signs Temperature 36.6 C 05/14/20 01:06 Pulse Rate 84 05/14/20 01:06 Respiratory Rate 16 05/14/20 01:06 Blood Pressure 146/107 H 05/14/20 01:06 Pulse Oximetry 97 05/14/20 01:06 Temperature 36.6 C 05/14/20 01:06 Pulse Rate 80 05/14/20 02:45 Respiratory Rate 20 05/14/20 02:45 Blood Pressure 159/89 H 05/14/20 02:45 Pulse Oximetry 95 05/14/20 02:45 Medical Decision Making Vital Signs Vital Signs: Vital Signs Temperature 36.6 C 05/14/20 01:06 Pulse Rate 84 05/14/20 01:06 Respiratory Rate 16 05/14/20 01:06 Blood Pressure 146/107 H 05/14/20 01:06 Pulse Oximetry 97 05/14/20 01:06 Temperature 36.6 C 05/14/20 01:06 Pulse Rate 80 05/14/20 02:45 Respiratory Rate 20 05/14/20 02:45 Blood Pressure 159/89 H 05/14/20 02:45 Pulse Oximetry 95 05/14
[2020-05-14] MEDS: levETIRAcetam 1000MG/NACL100ML 1,000 MG/100 ML BAG 400 MG IVPB (03:59)
[2020-05-14 04:09] LABS: Amphetamine Screen Urine Negative (Negative); Barbiturate Screen Urine Negative (Negative); Benzodiazepines Screen Urine Negative (Negative); Cannabinoid Screen Urine Negative (Negative); Cocaine Screen Urine Negative (Negative); Methadone Screen Urine Negative (Negative); Opiate Screen Urine Negative (Negative); Phencyclidine Screen Urine Negative (Negative)
== END 2020-05-14 04:47 | disposition home or self-care (01) ==
PROVIDERS: Emergency Provider Emergency Medicine; PCP Internal Medicine Geriatric Medicine
DX: R56.9 Unspecified convulsions (principal); E78.5 Hyperlipidemia, unspecified; E11.9 Type 2 diabetes mellitus without complications; Z79.4 Long term (current) use of insulin; I49.1 Atrial premature depolarization; I45.10 Unspecified right bundle-branch block; R94.31 Abnormal electrocardiogram [ECG] [EKG]
CPT/HCPCS: 36415; 70450; 71045; 80053; 80307; 81001; 82140; 83605; 84484; 85025; 85610; 85730; 93005; 96365; 99284; J1953